=== PATIENT | female | born 1955 | race Two or more races ===

== ENCOUNTER 2017-10-29 20:10 | Emergency (ER) | payer MEDICAID, OTHER ==
[~2017-10-29] VITALS: Ht 160 cm; Wt 77.6 kg
[2017-10-29 21:08] VITALS: BP 165/55
--- NOTE | 2017-10-29 21:08 | NUR ---
Patient discharged to home in stable condition. Written and verbal after care instructions given. Patient verbalizes understanding of instruction.
== END 2017-10-29 21:09 | disposition home or self-care (01) ==
LOC: ER 20:18
DX: J06.9 Acute upper respiratory infection, unspecified (principal); E05.90 Thyrotoxicosis, unspecified without thyrotoxic crisis or storm
CPT/HCPCS: A4606; Z7610